=== PATIENT | male | born 1965 | race Caucasian/White ===

== ENCOUNTER → 2020-09-02 09:28 | Outpatient (BNVA) | payer OTHER, SELFPAY | PROVIDERS: PCP Internal Medicine; Visit Provider Family Medicine Adult Medicine | DX: M54.16 Radiculopathy, lumbar region (principal); Z79.899 Other long term (current) drug therapy | CPT/HCPCS: 99202; Q3014 ==

== ENCOUNTER 2020-09-12 12:04 | Outpatient (REF) | payer OTHER, SELFPAY | END 2020-09-12 12:05 | disposition home or self-care (01) | LOC: HO.XRAY 12:04 | PROVIDERS: Absent Provider Family Medicine Adult Medicine; PCP Internal Medicine; Visit Provider Internal Medicine | DX: Z13.89 Encounter for screening for other disorder (principal) ==

== ENCOUNTER → 2020-10-17 14:00 | Outpatient (BNVA) | payer OTHER, SELFPAY | PROVIDERS: PCP Internal Medicine; Visit Provider Nurse Practitioner Family | DX: M54.16 Radiculopathy, lumbar region (principal) | CPT/HCPCS: Q3014 ==

== ENCOUNTER → 2020-10-23 16:00 | Outpatient (BNVA) | payer OTHER, SELFPAY | PROVIDERS: PCP Internal Medicine; Visit Provider Family Medicine Adult Medicine | DX: M54.16 Radiculopathy, lumbar region (principal) | CPT/HCPCS: 99212 ==

== ENCOUNTER → 2020-11-13 14:16 | Outpatient (BNVA) | payer OTHER, SELFPAY | PROVIDERS: PCP Internal Medicine; Visit Provider Family Medicine Adult Medicine | DX: M54.16 Radiculopathy, lumbar region (principal) | CPT/HCPCS: 99212 ==

== ENCOUNTER 2021-04-17 15:53 | Outpatient (REF) | payer OTHER, SELFPAY ==
--- NOTE | ~2021-04-17 | US_ITS ---
EXAMINATION: US SCROTUM CLINICAL INFORMATION: Lower abdominal pain, unspecified. COMPARISON: None TECHNIQUE: A sonogram of the scrotum was performed assessing nunes-scale appearance and color Doppler flow. Spectral Doppler analysis of the arterial and venous flow were performed in the testes bilaterally. FINDINGS: RIGHT: Right testicle measures 3.7 x 2.8 x 2.7 cm, volume 14.6 mL. No focal testicular parenchymal lesions are visualized. Spectral Doppler analysis of the arterial and venous flow is normal in the right testis. Right epididymal head is normal in size. There is a 5 mm right epididymal head cyst versus spermatocele. No right varicocele is seen. There is a small right hydrocele. Right epididymal Doppler flow is increased. LEFT: Left testicle measures 4.2 x 2.3 x 3.3 cm, volume 17.0 mL. No focal testicular parenchymal lesions are visualized. Spectral Doppler analysis of the arterial and venous flow is increased in the left testis. Left epididymal head is normal in size. There is a 5 mm left epididymal head cyst versus spermatocele.This shows mild associated peripheral calcification. No left hydrocele or varicocele is seen. Left epididymal Doppler flow is increased. US/US scrotum IMPRESSION: 1. There is increased color Doppler flow to the left testicle and epididymis, suggesting left epididymoorchitis. 2. There is increased color Doppler flow to the right epididymis, suggesting epididymitis. 3. No testicular mass or torsion is seen bilaterally. 4. There is a small right hydrocele. 5. There are small bilateral epididymal head cysts versus spermatoceles.
== END 2021-04-17 15:54 | disposition home or self-care (01) ==
LOC: HO.US 15:53
PROVIDERS: Visit Provider Internal Medicine
DX: R10.30 Lower abdominal pain, unspecified (principal)
CPT/HCPCS: 76870

== ENCOUNTER 2025-04-25 14:37 | Outpatient (AMB) | payer OTHER, SELFPAY ==
--- NOTE | 2025-04-25 14:42 | A.OFFPC_ITS ---
Vital Signs 04/25/25 14:43 04/25/25 14:51 Height 6 ft Weight 234 lb 4 oz BMI 31.8 BP 130/80 Blood Pressure Location Lt brachial Position Sitting Respiration 18 Pulse 82 Pulse Source Pulse Oximeter Temp 97.9 F Temp Source Temporal Artery Scan Temporal Artery Scan Pulse Oximetry (%) 98 Oxygen Delivery Method Room Air Intake Visit Reasons: Bilateral leg pain Instrumentation And Controls Designer Required: No Accompanied by: Self / Same As Patient Allergies dulaglutide (Trulicity) Allergy (Unknown, Verified 04/25/25 14:59) gi upset metformin Allergy (Unknown, Verified 04/25/25 14:59) diarrhea quetiapine (From SEROQUEL) Allergy (Unknown, Verified 04/25/25 14:59) PARALYSIS Medication List - Last Reconciled 04/25/25 by Velma Cooper PA-C clonidine HCl 0.3 mg PO BEDTIME insulin glargine (Lantus Solostar U-100 Insulin) 40 units subcut BEDTIME levothyroxine 0 mcg PO lorazepam 1 mg PO TID mirtazapine 30 mg PO BEDTIME PRN omeprazole 40 mg PO DAILY sertraline 100 mg PO DAILY sildenafil 100 mg PO DAILY PRN zolpidem 5 mg PO BEDTIME PRN Tobacco use date assessed: 04/25/25 Dental Screening Dental Screen Date: 04/25/25 Did you have a dental visit in the last 12 months?: Yes Did you have a dental problem in the last 6 months where you did not have access to dental care?: No Was dental information given to patient?: Patient has dentist HPI Bilateral leg pain HPI Details 59-year-old male with past medical histo ry of lumbar radiculopathy and cirrhosis last seen 10/2022 coming in for acute problem. Presenting with persistent leg pain and swelling in the knees.The leg pain began approximately 6-7 weeks ago, initially affecting the knees and progressing to the lower legs and feet. The pain is described as constant, with a cracking and crunching sensation in the legs. The patient reports swelling in the knees, particularly the left knee, which is managed with daily icing. Previous imaging, including an MRI and CAT scan, showed a bone bruise and cartilage loss but no other abnormalities. The patient has not engaged in new physical activities that could explain the onset of symptoms. The patient has previously received a cortisone injection in one knee, which did not alleviate the pain. [facility] Medical History Right lumbar radiculopathy Surgical History History of cholecystectomy History of extraction of renal calculus History of shoulder surgery H/O right knee surgery Family History Father Myocardial infarction Mother Lung cancer Brother Diabetes Brother Myocardial infarction Pancreatic cancer Other Mental health disorder Social History Household Members Other:: lives alone Housing: Apartment Alcohol intake: never Patient Tobacco Use Status: Never used Tobacco service: No Current occupational status: disabled Current occupation: Disabled since 1993 due to back injury and mental health Questionnaire PHQ-9 Over the last 2 weeks, how often have you been bothered by any of the following problems? 1. Little interest or pleasure in doing things: not at all 2. Feeling down, depressed, or hopeless: not at all 3. Trouble falling or staying asleep, or sleeping too much: not at all 4. Feeling tired or having little energy: not at all 5. Poor appetite or overeating: not at all 6. Feeling bad about yourself - or that you are a failure or have let yourself or your family down: not at all 7. Trouble concentrating on things, such as reading the newspaper or watching television: not at all 8. Moving or speaking so slowly that other people could have noticed. Or the opposite - being so fidgety or restless that you have been moving around a lot more than usual: not at all 9. Thoughts that you would be better off or of hurting yourself in some way: not at all Total score: 0 Source: Developed by Drs. Arsenio Carvalho, Pinky Martinez, Donn Arias and colleagues, with an educational tatianna from [employer]. Thrive Questionnaire Date Thrive assessed: 04/25/25 I am a: Patient What is your living situation today?: I have a steady place to live Within the past 12 months, did the food you bought not last and you didn't have the money to get more?: I choose not to answer this question Within the past 12 months, did you worry whether your food would run out before you got money to buy more?: I choose not to answer this question Do you have trouble paying for medicines?: I choose not to answer this question Do you have trouble getting transportation to medical appointments?: I choose not to answer this question Do you have trouble paying your heating and electricity bill?: I choose not to a nswer this question Do you have trouble taking care of your child, family member or friend?: I choose not to answer this question Do you have trouble with day-to-day activities such as bathing, preparing meals, shopping, managing finances, etc.?: I choose not to answer this question Are you currently unemployed and looking for a job?: I choose not to answer this question Are you interested in more education?: I choose not to answer this question Please select the resources that you would like help with: None Currently or been in a relationship where the following occur: I choose not to answer THRIVE Score: 0 AUDIT C Alcohol Use Questionnaire (AUDIT-C) 1. How often do you have a drink containing alcohol?: Never Total Score: 0 REBECA-7 AMB Questionnaire REBECA-7 Date REBECA - 7 assessed: 04/25/25 Feeling nervous, anxious, or on edge: 2 = More than half the days Not being able to stop or control worryin = More than half the days Worrying too much about different things: 2 = More than half the days Trouble relaxin = More than half the days Being so restless that it is hard to sit still: 2 = More than half the days Becoming easily annoyed or irritable: 2 = More than half the days Feeling afraid as if something awful might happen: 0 = Not at all Total REBECA-7 score (0-4 normal; 5-9 mild; 10-14 moderate; 15-21 severe): 12 Source: Developed by Drs. Arsenio Carvalho, Pinky Martinez, Donn Arias and colleagues, with an educational tatianna from [employer]. Review of Systems Const Denies body aches, Denies chills, Denies fever(s) and Denies poor appetite Eyes Reports no additional complaints ENT Denies dizziness Card Denies chest pain, Denies lightheadedness and Denies dyspnea Resp Denies dyspnea GI Denies nausea and Denies vomiting Reports no additional complaints Musc Reports as per HPI and Denies abnormal gait Skin/Breast Reports system reviewed and no additional complaints, except as documented Neuro Denies abnormal gait and Denies dizziness Psych Reports no additional complaints Physical exam (Primary Care) Vital Signs: Last Vital Signs Temp 97.9 F 04/25/25 14:43 Pulse 82 04/25/25 14:51 Resp 18 04/25/25 14:51 BP 130/80 04/25/25 14:51 Pulse Ox 98 04/25/25 14:51 Oxygen Delivery Method Room Air 04/25/25 14:51 BMI result Body Mass Index 31.8 Tobacco/Smoking Status: Tobacco use Status Tobacco use date assessed 04/25/25 04/25/25 14:58 Patient Tobacco Use Status Never used Tobacco 04/25/25 14:47 PHQ-9: PHQ-9 Score PHQ-9: Total score 0 04/25/25 15:05 Thrive Assessment: Date of Thrive Assessment Date Thrive assessed 04/25/25 04/25/25 14:58 Currently or been in a relationship where the following occur: I choose not to answer Const General: cooperative, healthy appearing, comfortable and no acute distress Orientation/consciousness: patient oriented x3 [facility] Head: Yes normocephalic Ears: hearing grossly normal bilaterally General nose exam: Normal external nose present Eyes General: appearance normal, both eyes and all related structures Conjunctivae: conjunctivae normal Neck Neck: Yes full ROM and Yes no lymphadenopathy Resp Effort & Inspection: normal respiratory effort Cardio Rate: regular rate Skin General skin exam: no rashes or lesions noted Neuro General: patient oriented x3 Gait exam (Neuro): Normal gait present Extrem Other: Intact strength, sensation, pulses in bilateral lower extremities. Tenderness to palpation over bilateral tibias and knees without swelling, redness or warmth. No calf swelling bilaterally General: Yes normal to inspection, Yes full ROM and No edema Psych Affect: normal affect Attitude: cooperative Insight: Good insight present (Psych) Judgement: Good judgement present (Psych) Coding Level of Care Code Est Pt Level 3 (14227) Diagnoses Bone pain M89.8X9 Assessment & Plan Assessment & Plan (1) Bone pain: Code(s): M89.8X9 - Other specified disorders of bone, unspecified site Category: Medical Plan: Patient has had an extensive workup at [facility] which include a CAT scan as well as an MRI of the left knee and blood work. All labs and imaging were normal. I did discuss with the patient this may be related to sal splints as he has had these in the past and likely rest, heat and anti-inflammatories along with gentle stretching should remedy this pain. Patient is still concerned plan to order for blood work to rule out autoimmune condition that could potentially be causing the pain. He is also requesting a bone density screening which has been ordered. Plan This note was constructed using voice recognition software. While every effort has been made to ensure accuracy and regeneration operator, still areas may have been included sometimes these areas may affect the content or meeting of the given symptoms. Total time spent caring for the patient today was 20 minutes. This includes time spent before the visit reviewing the chart, time spent during the visit, and time spent after the visit and documentation. Patient was informed and verbally consented to the use of an ambient scribe for clinic note documentation during this visit. Orders: Orders Erythrocyte Sedimentation Rate Today M89.8X9 - Other specified disorders of bone, unspecified site Complete Blood Count Auto Diff Today M89.8X9 - Other specified disorders of bone, unspecified site XR DEXA axial skeleton Today M89.8X9 - Other specified disorders of bone, unsp ecified site C Reactive Protein Today M89.8X9 - Other specified disorders of bone, unspecified site VANNESSA Reflex Titer and Pattern Today M89.8X9 - Other specified disorders of bone, unspecified site
[2025-04-25 14:43] VITALS: TEMP 36.6
[2025-04-25 14:51] VITALS: BP 130/80; PULSE 82; RESP 18; O2SAT 98; BMI 31.8
--- OUTSIDE RECORDS SUMMARY | 2025-04-25 15:16 | XMS_ITS | Clinical Summary ---
Author Organization [facility] Address [address] [place] [address] Care Team Providers Care Blend Technician Name Role Phone Unavailable Primary Care Provider Unavailabl e Allergies Active Allergy Reactions Criticality Noted Date Comments Quetiapine 08/14/2021 Medications Medication Sig Dispensed Refills Start Date End Date Status cloNIDine (CATAPRES) 0.3 MG tablet 0 08/09/2017 Active levothyroxine (SYNTHROID, LEVOXYL) tablet 112 mcg 1 08/09/2017 Active LORazepam (ATIVAN) 1 MG tablet 0 07/29/2017 Active mirtazapine (REMERON) 30 MG tablet take 1 tablet by mouth at bedtime 0 08/30/2017 Active zolpidem (AMBIEN) 10 MG tablet 0 08/09/2017 Active Active Problems Problem Noted Date Diagnosed Date Chronic pain of both shoulders 09/07/2017 Social History Tobacco Use Types Packs/Day Years Used Date Smoking Tobacco: Never Assessed Sex and Gender Information Value Date Recorded Sex Assigned at Not on file Gender Identity Not on file Sexual Orientation Not on file Job Start Date Occupation Industry Not on file Not on file Not on file Last Filed Vital Signs Vital Sign Reading Time Taken Comments Blood Pressure - - Pulse - - Temperature - - Respiratory Rate - - Oxygen Saturation - - Inhaled Oxygen Concentration - - Weight 116.1 kg (256 lb) 08/14/2021 8:50 AM EST Height 185.4 cm (6' 1 ) 08/14/2021 8:50 AM EST Body Mass Index 33.78 08/14/2021 8:50 AM EST Plan of Treatment Health Maintenance Due Date Last Done Comments Hepatitis C Screening 1965 COVID-19 Vaccine (#1) 1963 Depression Screening 1975 BMI Counseling 1981 Preventative Health Evaluation 1981 DTap / Tdap / Td (1 - Tdap) 1982 Colon Cancer Screening (Colonoscopy) 2008 Shingrix-Zoster Vaccine (1 of 2) 2013 Influenza Vaccine (#1) 2025 RSV Adult > 60+ Yrs or Pregn ant (1 - 1-dose 75+ series) 2038 Hepatitis B Vaccines Aged Out No long er eligible based on patient's age to complete this topic Pneumococcal Vaccine Aged Out No long er eligible based on patient's age to complete this topic RSV Ped < 20 months Aged Out No longe r eligible based on patient's age to complete this topic
--- OUTSIDE RECORDS SUMMARY | 2025-04-25 15:16 | XMS_ITS | Clinical Summary ---
Author Organization [address] [facility] Address [address] [place] [address] Phone Care Team Providers Care Gyro Mechanic Name Role Phone Physician, No Pcp Primary Care Provider Unavaila ble Surgical History Surgery Date Site/Laterality Comments OTHER SURGICAL HISTORY 07/17/03 PROCEDURE: MS SURGICAL ARTHROSCOPY CHRISTINA W/CORACOACRM LIGM RLS; COMMENT: Constantin Lyles OTHER SURGICAL HISTORY 07/01/05 PROCEDURE: MS SURGICAL ARTHROSCOPY CHRISTINA W/CORACOACRM LIGM RLS; COMMENT: Valerio Lyles KNEE SURGERY 12/27/05 PROCEDURE: HISTORICAL KNEE SURGERY; COMMENT: partial R medial meniscectomy - Dr. Lyles ROTATOR CUFF REPAIR 05/13/04 PROCEDURE: HISTORICAL ROTATOR CUFF REPAIR; COMMENT: Constantin Lyles LITHOTRIPSY PROCEDURE: HISTORICAL LITHOTRIPSY Family History Medical History Relation Name Comments Other cancer Brother 1 pancreas Relation Name Status Comments Brother 1 Brother 2 Social History Tobacco Use Types Packs/Day Years Used Date Smoking Tobacco: Never Alcohol Use Standard Drinks/Week Comments No 0 (1 standard drink = 0.6 oz pur e alcohol) Sex and Gender Information Value Date Recorded Sex Assigned at Not on file Legal Sex Male 10:44 AM EST Gender Identity Not on file Sexual Orientation Not on file Obstetrics History Plan of Treatment Upcoming Encounters Date Type Department Care Team (Late Contact Info) Description 06/27/2025 10:00 AM EDT Consult Gastroenterology - [place] [address] [place] [address] Evens Kelly DO [address] [place] [address] Health Maintenance Due Date Last Done Comments DTaP,Tdap,and Td Vaccines (1 - Tdap) 1982 Hepatitis A Vaccines (1 of 2 - Risk 2-dose series) 1982 Pneumococcal Vaccine: 50+ Ye ars (1 of 1 - PCV) 2013 Zoster Vaccines (1 of 2) 2013 Cholesterol Screening (Lipid Panel) 07/27/2022 Colorectal Cancer Screening: Colonoscopy 07/27/2022 HIV Screening 07/27/2022 Hepatitis C Screening 07/27/2022 Medicare Annual Wellness Visit 07/27/2022 Social Influencers of Health Screening 07/27/2022 Hypertension/CHF/CAD Annual BMP Blood Test 08/12/2022 COVID-19 Vaccine (1 - 2023-2 5 season) 2024 Depression Screening 08/29/2024 Influenza Vaccine (#1) 2025 RSV Immunization Adult Patie nts (1 - 1-dose 75+ series) 2038 HIB Vaccines Aged Out No longer eligi ble based on patient's age to complete this topic HPV Vaccines Aged Out No longer eligi ble based on patient's age to complete this topic Hepatitis B Vaccines Aged Out No long er eligible based on patient's age to complete this topic IPV Vaccines Aged Out No longer eligi ble based on patient's age to complete this topic MMR Vaccines Aged Out No longer eligi ble based on patient's age to complete this topic Meningococcal ACWY Vaccine Aged Out N o longer eligible based on patient's age to complete this topic Meningococcal B Vaccine Aged Out No l onger eligible based on patient's age to complete this topic RSV Immunization Patients Un jeet 20 months Aged Out No longer eligible b ased on patient's age to complete this topic Varicella Vaccines Aged Out No longer eligible based on patient's age to complete this topic Insurance [facility] MEDICARE Member Subscriber Plan / Payer (Ef fective 2019-Present) Name:HIEU RAI Relation to Subscriber:Self Name:Hieu Rai Payer ID:[id number] Group ID:[id number] Type:Not on file Address: [address] [place] [id number] Care Teams Gyro Mechanic Relationship Specialty Start Date End Date Physician, No Pcp PCP - General 12/18/24
== END 2025-04-25 15:31 | disposition home or self-care (01) ==
LOC: HO.HMCH 14:38
DX: M89.8X9 Other specified disorders of bone, unspecified site (principal)

== ENCOUNTER → 2025-04-25 14:37 | Outpatient (BNVA) | payer OTHER, SELFPAY | DX: M54.16 Radiculopathy, lumbar region (principal); K74.60 Unspecified cirrhosis of liver; M89.8X9 Other specified disorders of bone, unspecified site | CPT/HCPCS: 96127; 99212 ==